=== PATIENT | female | born 1950 | race Two or more races ===

== ENCOUNTER 2019-08-15 06:08 | Day surgery (SDC) | payer MEDICARE, MEDICAID ==
[~2019-08-15] VITALS: Ht 151.1 cm; Wt 64.5 kg
[~2019-08-15 06:08] MED LIST: AMLO5TAB88 PO; ASPI-1497 PO; ATOR40TA70 PO; LOSA100T32 PO; METF-414 PO; RANI-655 PO
[2019-08-15] MEDS ORDERED: BUPIVACAINE HCL/PF 0.5% (5MG/ML) 10ML ONE (06:49)
[2019-08-15] MEDS ORDERED: VASOPRESSIN 20 UNIT/ML 1ML ONE (06:50)
[2019-08-15] MEDS ORDERED: SODIUM CHLORIDE 0.9% 100 ML IV ONE (07:30)
[2019-08-15] MEDS ORDERED: FENTANYL CITRATE/PF 50MCG/ML 2ML VIAL ONE (07:42)
[2019-08-15] MEDS ORDERED: MIDAZOLAM HCL 2 MG/2 ML VIAL ONE (07:42)
[2019-08-15] MEDS ORDERED: SODIUM CHLORIDE 0.9% 10ML VIAL ONE ×2 (07:43→10:30)
[2019-08-15] MEDS ORDERED: PROPOFOL 200MG/20ML VIAL IV ONE (07:43)
[2019-08-15] MEDS ORDERED: EPHEDRINE SULFATE 50MG/ML VIAL ONE (07:43)
[2019-08-15] MEDS ORDERED: LIDOCAINE HCL/PF 1% 10 MG/ML 5ML VIAL ONE (07:44)
[2019-08-15 07:45] LABS: CHLORIDE 109 mEq/L (98-107)
[2019-08-15] MEDS ORDERED: PHENYLEPHRINE HCL 10 MG/ML 1ML (IV VIAL) IV ONE (07:47)
[2019-08-15 07:48] LABS: PARTIAL THROMBOPLASTIN TIME 25.2 sec (23.4-31.0); PROTHROMBIN TIME 10.6 sec (9.6-11.0)
[2019-08-15] MEDS ORDERED: SUCCINYLCHOLINE CHLORIDE 200MG/10ML IV ONE (07:49)
[2019-08-15] MEDS ORDERED: ROCURONIUM BROMIDE 10MG/ML VIAL 5ML IV ONE (07:50)
[2019-08-15 07:58] LABS: BASOPHILS % 0.6 % (0.0-2.0); EOSINOPHILS % 1.6 % (0.0-5.0); HEMATOCRIT. 35.4 % (36.0-48.0); HEMOGLOBIN. 11.9 g/dL (12.0-16.0); LYMPHOCYTES % 22.6 % (20.0-50.0); MEAN CORPUSCULAR HEMOGLOBIN 30.1 pg (28.0-32.0); MEAN CORPUSCULAR VOLUME 89.4 fL (81.0-99.0); MONOCYTES % 8.2 % (2.0-8.0); PLATELET 190 x1000/uL (130-400); RED BLOOD CELL COUNT 3.96 mill/uL (4.2-5.4); RED CELL DISTRIBUTION WIDTH 12.9 % (11.6-14.6)
[2019-08-15] MEDS ORDERED: CEFAZOLIN SODIUM 1000MG/VIAL ONE (08:38)
[2019-08-15] MEDS ORDERED: DEXAMETHASONE 4MG/ML 1ML VIAL ONE (08:40)
[2019-08-15] MEDS ORDERED: ONDANSETRON HCL 4MG/2ML INJ ONE (08:41)
[2019-08-15] MEDS ORDERED: METOCLOPRAMIDE HCL 10MG/2ML VIAL ONE (08:41)
[2019-08-15] MEDS ORDERED: SKIN ADHESIVE 0.7 GM EA TOP ONE (09:56)
[2019-08-15] MEDS ORDERED: HYDRALAZINE 20MG/ML VIAL ONE (10:30)
[2019-08-15] MEDS ORDERED: NEOSTIGMINE METHYLSULFATE 1MG/ML 10 ML VIAL ONE (10:39)
[2019-08-15] MEDS ORDERED: GLYCOPYRROLATE 0.2 MG/ML 2ML VIAL ONE (10:39)
[2019-08-15] MEDS ORDERED: HYDROMORPHONE HCL/PF 2MG/ML CPJ ONE (11:35)
[2019-08-15] MEDS: HYDROMORPHONE HCL/PF 2MG/ML CPJ IV PRN ×5 (11:38→13:08)
[2019-08-15] MEDS ORDERED: HYDROCODONE/ACETAMINOPHEN 5/325MG TABLET PO NR (13:26)
[2019-08-15] MEDS ORDERED: INSULIN REGULAR (HUMULIN R) 300UNITS/3ML SUBCUT NR (13:27)
[2019-08-15 15:03] VITALS: BP 132/68
== END 2019-08-15 15:30 | disposition home or self-care (01) ==
LOC: OR 06:08
PROVIDERS: ATTEND Obstetrics & Gynecology
DX: N95.0 Postmenopausal bleeding (principal); D25.9 Leiomyoma of uterus, unspecified; I10 Essential (primary) hypertension; E78.00 Pure hypercholesterolemia, unspecified; E11.9 Type 2 diabetes mellitus without complications; D50.0 Iron deficiency anemia secondary to blood loss (chronic); Z79.82 Long term (current) use of aspirin; Z79.899 Other long term (current) drug therapy; Z79.84 Long term (current) use of oral hypoglycemic drugs; Z98.890 Other specified postprocedural states
CPT/HCPCS: 36415; 58552; 80048; 82962; 85025; 85610; 85730; 86850; 86900; 86901; 88307; 93005; J0360; J0690; J1100; J1170; J1815; J2250; J2370; J2405; J2704; J2710; J2765; J3010; J3490; J0330